=== PATIENT | female | born 1955 | race Caucasian/White ===

== ENCOUNTER → 2016-10-22 | Outpatient (CLI) | payer OTHER ==
--- NOTE | 2016-10-22 15:17 | US ---
Ultrasound left Breast History: Palpable abnormality in the left breast on physical exam. COMPARISON: Mammogram October 22, 2016. Technique: Ultrasound imaging of the upper outer quadrant of the left breast from the 12 to the 3 o'c lock position was performed by the equipment engineering technician and me. Findings: In the left breast at the 2:00 position 4 cm from the nipple there is a benign simple cyst measuring 11 x 10 x 6 mm corresponding to the region of palpable concern and also corresponding to th e mammogram. No suspicious findings on mammography or ultrasound. No solid suspicious lesions on ultr asound. Impression: 1. BI-RADS 2: Benign findings left breast. 2. Left breast 11 mm simple cyst at the 2:00 position. No suspicious findings. 3. Recommend continued clinical monitoring and treatment based on clinical suspicion. 4. Recommend annual screening mammograms with next mammogram in October 2017. Findings and recommendations have been discussed with the patient who agrees with the plan.
--- NOTE | 2016-10-22 15:30 | MA ---
[facility] Ind[facility]: Palpable abnormality in the left breast. Patient no longer feels the palpable a bnormality, however physician did feel abnormality. Technique: Standard digital cephalocaudal and mediolateral oblique projections were obtained. Addit ional left breast true lateral view. This examination was processed by the [facility] computer-aided detec tion system. Comparison: 2014, 2013, 2012. Breast density: 3: 50 to 75%. Findings: Computer-aided detection was reviewed. Nodular parenchymal pattern in both breasts without new dominant densities. No suspicious cluster of microcalcifications, new dominant densities or arch itectural distortion. Impression: 1. ACR BI-RADS 0: Needs further imaging 2. No mammographic evidence of malignancy. Recommendation: Ultrasound of the left breast outer quadrant in the region of palpable concern which will be subseque ntly performed. Please see ultrasound report and recommendations. [facility] will send a result letter to the patient.
== END ==
LOC: BRMIMAGING 11:15
DX: Z12.39 Encounter for other screening for malignant neoplasm of breast (principal); N60.02 Solitary cyst of left breast
CPT/HCPCS: 76641-PO; G0204

== ENCOUNTER → 2017-11-05 | Outpatient (CLI) | payer OTHER | LOC: BRMIMAGING 13:07 | DX: Z12.31 Encounter for screening mammogram for malignant neoplasm of breast (principal) ==